=== PATIENT | female | born 1965 | race Caucasian/White ===

== ENCOUNTER 2016-05-07 14:18 | Emergency (ER) | payer MEDICAID ==
[~2016-05-07] VITALS: Ht 154.9 cm; Wt 81.6 kg
[2016-05-07 15:07] VITALS: BP 138/70
== END 2016-05-07 15:25 | disposition home or self-care (01) ==
LOC: EDUNIT# 14:18 → ER 14:24
DX: S80.01XA Contusion of right knee, initial encounter (principal); Z88.2 Allergy status to sulfonamides; Z88.6 Allergy status to analgesic agent; W19.XXXA Unspecified fall, initial encounter; Y93.89 Activity, other specified; Y99.8 Other external cause status; Y92.89 Other specified places as the place of occurrence of the external cause

== ENCOUNTER 2016-11-27 12:26 | Emergency (ER) | payer MEDICAID ==
[~2016-11-27] VITALS: Ht 154.9 cm; Wt 79.4 kg
[2016-11-27 13:00] VITALS: BP 125/83
== END 2016-11-27 13:30 | disposition home or self-care (01) ==
LOC: ER 12:26
DX: G56.03 Carpal tunnel syndrome, bilateral upper limbs (principal); Z88.6 Allergy status to analgesic agent; Z88.2 Allergy status to sulfonamides

== ENCOUNTER 2017-08-30 12:48 | Emergency (ER) | payer MEDICAID ==
[~2017-08-30] VITALS: Ht 154.9 cm; Wt 126.1 kg
[2017-08-30 12:54] VITALS: BP 168/69
== END 2017-08-30 15:13 | disposition home or self-care (01) ==
LOC: ER 12:48
DX: M25.551 Pain in right hip (principal); G89.29 Other chronic pain; M54.41 Lumbago with sciatica, right side; Z88.6 Allergy status to analgesic agent; Z88.1 Allergy status to other antibiotic agents
CPT/HCPCS: 73502

== ENCOUNTER 2018-05-18 13:19 | Emergency (ER) | payer MEDICAID ==
[~2018-05-18] VITALS: Ht 154.9 cm; Wt 80.7 kg
[2018-05-18 13:31] VITALS: BP 113/60
== END 2018-05-18 16:16 | disposition left against medical advice (07) ==
LOC: EDBD 13:19 → EDSEX 13:19 → ER 13:25
DX: S20.319A Abrasion of unspecified front wall of thorax, initial encounter (principal); Z53.21 Procedure and treatment not carried out due to patient leaving prior to being seen by health care provider; V89.2XXA Person injured in unspecified motor-vehicle accident, traffic, initial encounter; Y93.89 Activity, other specified; Y92.89 Other specified places as the place of occurrence of the external cause; Y99.8 Other external cause status
CPT/HCPCS: 93005

== ENCOUNTER 2018-05-24 12:12 | Emergency (ER) | payer MEDICAID ==
[~2018-05-24] VITALS: Ht 154.9 cm; Wt 80.7 kg
[2018-05-24 12:19] VITALS: BP 141/84
== END 2018-05-24 14:46 | disposition home or self-care (01) ==
LOC: ER 12:12
DX: R07.89 Other chest pain (principal); E11.9 Type 2 diabetes mellitus without complications; I10 Essential (primary) hypertension; Z88.5 Allergy status to narcotic agent; Z88.2 Allergy status to sulfonamides; V48.5XXA Car driver injured in noncollision transport accident in traffic accident, initial encounter; Y93.89 Activity, other specified; Y99.8 Other external cause status; Y92.89 Other specified places as the place of occurrence of the external cause
CPT/HCPCS: 71046; 93005

== ENCOUNTER 2023-01-23 18:07 | Emergency (ER) | payer SELFPAY ==
[~2023-01-23] VITALS: Ht 154.9 cm; Wt 70.0 kg
[2023-01-23 18:25] VITALS: BP 114/78; PULSE 101; RESP 18; TEMP 98.9; O2SAT 100
[2023-01-23] MEDS ORDERED: BACL5TAB2 PO (22:39)
[2023-01-23] MEDS ORDERED: HYDROcodone-ACET 5/325MG TAB PO ONE (22:45)
== END 2023-01-23 23:08 | disposition home or self-care (01) ==
LOC: ER 18:07
DX: G89.29 Other chronic pain (principal); M25.552 Pain in left hip; M25.551 Pain in right hip; M54.59 Other low back pain; M62.838 Other muscle spasm; E11.9 Type 2 diabetes mellitus without complications; I10 Essential (primary) hypertension
CPT/HCPCS: 71250; 74176

== ENCOUNTER 2023-06-03 20:16 | Emergency (ER) | payer MEDICAID, OTHER ==
[~2023-06-03] VITALS: Ht 154.9 cm; Wt 66.8 kg
[2023-06-03 20:16] VITALS: BP 142/84; PULSE 123; RESP 16; O2SAT 95
[~2023-06-03 20:16] MED LIST: BACL5TAB2 PO
== END 2023-06-04 01:57 | disposition left against medical advice (07) ==
LOC: ER 20:16
DX: M25.551 Pain in right hip (principal); R07.81 Pleurodynia; Z53.21 Procedure and treatment not carried out due to patient leaving prior to being seen by health care provider; W01.0XXA Fall on same level from slipping, tripping and stumbling without subsequent striking against object, initial encounter; Y93.89 Activity, other specified; Y92.89 Other specified places as the place of occurrence of the external cause; Y99.8 Other external cause status
CPT/HCPCS: 71101; 73502